=== PATIENT | female | born 1955 | race Caucasian/White ===

== ENCOUNTER 2019-08-08 22:25 | Emergency (ER) | payer SELFPAY ==
[~2019-08-08] VITALS: Ht 152.4 cm; Wt 48.0 kg
[2019-08-08] MEDS ORDERED: DIPH,PERTUSS(ACELL),TET VAC/PF 0.5 ML IM-VACC ONE ×2 (23:30→23:40)
[2019-08-08] MEDS ORDERED: HYDROcodone/APAP 5/325 TABLET PO PRN (23:30)
[2019-08-08] MEDS ORDERED: HYDROcodone/APAP 5/325 TABLET ONE (23:40)
--- NOTE | 2019-08-08 23:46 | NUR ---
MEDS GIVEN, PATIENT TOLERATED WELL. PATIENT TAKEN TO XRAY VIA GURNEY
[2019-08-09 01:28] VITALS: BP 133/59
== END 2019-08-09 01:48 | disposition home or self-care (01) ==
LOC: ED 23:34
DX: S52.572A Other intraarticular fracture of lower end of left radius, initial encounter for closed fracture (principal); R07.81 Pleurodynia; Z87.891 Personal history of nicotine dependence; V27.4XXA Motorcycle driver injured in collision with fixed or stationary object in traffic accident, initial encounter; Y93.89 Activity, other specified; Y92.89 Other specified places as the place of occurrence of the external cause; Y99.8 Other external cause status
CPT/HCPCS: 29125; 71046; 90471; 90715; 99284

== ENCOUNTER 2019-10-07 15:00 | Emergency (ER) | payer SELFPAY ==
[~2019-10-07] VITALS: Ht 152.4 cm; Wt 50.0 kg
--- NOTE | 2019-10-07 15:18 | NUR ---
pt ambulated to room with a steady gait. Changing into hospital gown.
--- NOTE | 2019-10-07 15:24 | NUR ---
pt in with C/O left arm pain that "has gotten progressively worse the last ten days" and "really bad heart burn, bloating and gas"
--- NOTE | 2019-10-07 15:30 | NUR ---
pt states that she was in the ED in 07/2019 and was advised that she broke her wrist. pt verbalized that she was unable to follow up d/t finicial reasons and keep the cast on until 2 weeks ago. pt verbalizes that the pain, numbness, tingling became worse after cast removal. pt verbalized that she has been unable to sleep x7 day as a result of pain.
[2019-10-07] MEDS ORDERED: MAALOX/HYOSCYAMINE/LIDOCAINE 45 ML BTL ONE (15:55)
[2019-10-07] MEDS ORDERED: KETOROLAC 30 MG/1 ML ONE (15:55)
[2019-10-07] MEDS ORDERED: MAALOX/HYOSCYAMINE/LIDOCAINE 45 ML BTL PO ONE (16:00)
[2019-10-07] MEDS ORDERED: KETOROLAC 30 MG/1 ML IM ONE (16:00)
--- NOTE | 2019-10-07 16:08 | NUR ---
xray at bedside.
[2019-10-07 16:20] LABS: ALANINE AMINOTRANSFERASE 23 U/L (12-78); ALBUMIN 3.4 g/dL (3.4-5.0); ANION GAP 5 mmol/L (5-15); CALCIUM 8.8 mg/dL (8.5-10.1); CHLORIDE 112 mmol/L (98-107); CREATININE 0.86 mg/dL (0.55-1.02)
[2019-10-07 16:22] LABS: ALKALINE PHOSPHATASE 110 U/L (45-117); BILIRUBIN,TOTAL 0.4 mg/dL (0.2-1.0); TOTAL PROTEIN 7.4 g/dL (6.4-8.2)
[2019-10-07 16:31] LABS: MEAN CORPUSCULAR HEMOGLOBIN 16.2 pg (27.0-34.8); PLATELET COUNT 340 x10^3/uL (130-400); RED BLOOD COUNT 3.89 x10^6/uL (3.82-5.3); RED CELL DISTRIBUTION WIDTH 21.4 % (9.6-15.2)
[2019-10-07 16:33] LABS: MEAN CORPUSCULAR HGB CONC 28.4 g/dL (32.4-35.8)
[2019-10-07 16:42] LABS: BASOPHILS # (AUTO) 0.05 x10^3/uL (0-0.1); BASOPHILS % (AUTO) 1 % (0-1); EOSINOPHILS # (AUTO) 0.15 x10^3/uL (0-0.4); EOSINOPHILS % (AUTO) 3 % (1-7); LYMPHOCYTES # (AUTO) 1.42 x10^3/uL (1-3.4); LYMPHOCYTES % (AUTO) 24 % (22-44); MD MORPH REVIEW ONLY; MONOCYTES # (AUTO) 0.51 x10^3/uL (0.2-0.8); MONOCYTES % (AUTO) 9 % (2-9); NEUTROPHILS % (AUTO) 64 % (42-75)
[2019-10-07 16:43] LABS: ANISOCYTOSIS 1+; MICROCYTOSIS 2+
[2019-10-07 16:44] LABS: HYPOCHROMIA 2+; OVALOCYTES 1+
[2019-10-07 16:45] LABS: <PLATELET ESTIMATE> ADEQUATE; <PLT MORPHOLOGY> NORMAL PLT MORPH; POLYCHROMASIA 1+
--- NOTE | 2019-10-07 16:56 | NUR ---
MD at bedside to perform rectal exam.
--- NOTE | 2019-10-07 17:00 | NUR ---
pt refusing IV start and blood transfusion. Updated provider regarding pts refusal
[2019-10-07 17:08] VITALS: BP 163/80
--- NOTE | 2019-10-07 17:08 | NUR ---
Dr. Meyers at bedside.
--- NOTE | 2019-10-07 17:38 | NUR ---
Patient given discharge instructions and they have confirmed that they understand the instructions. Patient ambulatory with steady gait.
== END 2019-10-07 18:00 | disposition home or self-care (01) ==
LOC: ED 17:30
DX: G56.02 Carpal tunnel syndrome, left upper limb (principal); M25.532 Pain in left wrist; D50.0 Iron deficiency anemia secondary to blood loss (chronic); R10.84 Generalized abdominal pain
CPT/HCPCS: 29125; 36415; 73110; 80053; 83690; 85025; 93005; 96372; 99285; J1885

== ENCOUNTER 2019-11-28 04:19 | Inpatient (IN) | payer OTHER ==
[2019-11-28] VITALS (10 sets, daily range): BP systolic 131–160; BP diastolic 64–84
[~2019-11-28] VITALS: Ht 154.9 cm; Wt 48.4 kg
--- NOTE | 2019-11-28 04:30 | NUR ---
64 YEAR OLD FEMALE TO ED FOR ABDOMINAL PAIN THAT IS MIDLINE WITH ASSOCIATED NAUSEA AND CHILLS. SHE DENIES FEVER, CONSTIPATION, VOMITING, DIARRHEA.
[2019-11-28] MEDS ORDERED: DICYCLOMINE 10 MG/ML, 2ML IM ONE (05:00)
[2019-11-28] MEDS ORDERED: DICYCLOMINE 10 MG/ML, 2ML ONE (05:08)
[2019-11-28 05:23] LABS: ALANINE AMINOTRANSFERASE 22 U/L (12-78); ANION GAP 5 mmol/L (5-15); CALCIUM 8.9 mg/dL (8.5-10.1); CHLORIDE 108 mmol/L (98-107)
[2019-11-28 05:25] LABS: ALKALINE PHOSPHATASE 123 U/L (45-117); BILIRUBIN,TOTAL 0.3 mg/dL (0.2-1.0); CREATININE 1.18 mg/dL (0.55-1.02)
[2019-11-28 05:36] LABS: BASOPHILS % (AUTO) 1 % (0-1); EOSINOPHILS % (AUTO) 1 % (1-7); LYMPHOCYTES % (AUTO) 19 % (22-44); MEAN CORPUSCULAR HEMOGLOBIN 19.7 pg (27.0-34.8); MEAN CORPUSCULAR HGB CONC 30.3 g/dL (32.4-35.8); MEAN PLATELET VOLUME 8.4 fL (7.4-10.4); MONOCYTES % (AUTO) 8 % (2-9); NEUTROPHILS % (AUTO) 71 % (42-75); PLATELET COUNT 322 x10^3/uL (130-400); RED BLOOD COUNT 3.49 x10^6/uL (3.82-5.3); RED CELL DISTRIBUTION WIDTH 29.1 % (9.6-15.2)
[2019-11-28] MEDS ORDERED: PANTOPRAZOLE 40 MG IV ONE (05:38)
[2019-11-28] MEDS ORDERED: OMNIPAQUE 350 MG/ML, 100ML BOTTLE ONE (05:59)
[2019-11-28] MEDS ORDERED: PANTOPRAZOLE 40 MG IV IV ONE (06:00)
[2019-11-28] MEDS ORDERED: SODIUM CHLORIDE FLUSH 10ML SYR IVF ONE (06:00)
[2019-11-28] MEDS ORDERED: PANTOPRAZOLE 80 MG in SODIUM CHLORIDE 0.9% 100 ML IV SCH ×2 (06:30→08:30)
[2019-11-28 06:37] LABS: % IRON SATURATION 3 % (20-55); ANISOCYTOSIS 2+; BAND#(MANUAL) 0.07 x10^3/uL; BANDS%(MANUAL) 1 % (0-7); BASOS#(MANUAL) 0.07 x10^3/uL (0-0.1); BASOS% (MANUAL) 1 % (0-1); HYPOCHROMIA 2+; IRON LEVEL 11 mcg/dL (50-170); LYMPH#(MANUAL) 0.99 x10^3/uL (1-3.4); LYMPHS% (MANUAL) 15 % (22-44); MICROCYTOSIS 2+; MONOS#(MANUAL) 0.26 x10^3/uL (0.3-2.7); MONOS% (MANUAL) 4 % (2-9); OVALOCYTES 1+; POLYCHROMASIA 1+; SEG#(MANUAL) 5.21 x10^3/uL (1.8-6.8); SEGS% (MANUAL) 79 % (42-75); TOTAL IRON BINDING CAPACITY 409 mcg/dL (250-450)
[2019-11-28 06:38] LABS: <PLATELET ESTIMATE> ADEQUATE; <PLT MORPHOLOGY> NORMAL PLT MORPH
[2019-11-28 06:40] LABS: MD YES
[2019-11-28 06:43] LABS: INTERNATIONAL NORMALIZED RATIO 0.91 (0.93-1.1); PROTHROMBIN TIME 9.4 Seconds (9.6-11.5)
--- NOTE | 2019-11-28 07:05 | NUR ---
REPORT RECEIVED FROM BHAVYA MARADIAGA.
--- NOTE | 2019-11-28 07:13 | NUR ---
PT AMB TO BR WITH STEADY GAIT. URINE CUP GIVEN.
--- NOTE | 2019-11-28 07:21 | NUR ---
PT SIGNED ON CONSENT TO BLOOD TRANSFUSION.
[2019-11-28] MEDS ORDERED: ACETAMINOPHEN 325 MG TABLET PO PRN (07:30)
[2019-11-28] MEDS ORDERED: METOCLOPRAMIDE 5 MG/ML, 2ML IVPush PRN ×2 (07:30→17:00)
[2019-11-28] MEDS ORDERED: ONDANSETRON 2MG/ML, 2ML IVPush PRN (07:30)
[2019-11-28] MEDS ORDERED: TEMAZEPAM 15 MG CAPSULE PO PRN (07:30)
--- NOTE | 2019-11-28 07:31 | NUR ---
URINE COLLECTED AND UA SENT AT THIS TIME.
--- NOTE | 2019-11-28 08:22 | NUR ---
BLOOD TRANSFUSION STARTED AT THIS TIME.
[2019-11-28] MEDS ORDERED: IRON DEXTRAN COMPLEX 25 MG in SODIUM CHLORIDE 0.9% 50 ML IV ONE (08:30)
[2019-11-28 08:52] LABS: MICROSCOPIC AUTO
--- NOTE | 2019-11-28 08:53 | NUR ---
report given to brianda khanna. all questions answered.
[2019-11-28] MEDS ORDERED: IRON DEXTRAN COMPLEX 1,350 MG in SODIUM CHLORIDE 0.9% 250 ML IV ONE (09:30)
[2019-11-28] MEDS ORDERED: EPINEPHRINE 1 MG/ML, 1ML SQ PRN (10:30)
[2019-11-28] MEDS: OMEPRAZOLE 20 MG CAPSULE.DR PO SCH (15:58)
[2019-11-28] MEDS: POTASSIUM CHLORIDE 20 MEQ in LACTATED RINGERS 1,000 ML IV SCH (15:58)
[2019-11-28] MEDS ORDERED: GOLYTELY 4,000ML ORAL.SOL PO ONE ×2 (18:00)
[2019-11-29] MEDS: POTASSIUM CHLORIDE 20 MEQ in LACTATED RINGERS 1,000 ML IV SCH ×3 (02:03→22:35)
[2019-11-29 02:31] VITALS: BP 163/80
[2019-11-29] MEDS: OMEPRAZOLE 20 MG CAPSULE.DR PO SCH ×2 (05:12→15:32)
[2019-11-29 07:42] LABS: ALBUMIN 2.7 g/dL (3.4-5.0); ANION GAP 3 mmol/L (5-15); CALCIUM 9.3 mg/dL (8.5-10.1); CHLORIDE 111 mmol/L (98-107); CREATININE 0.76 mg/dL (0.55-1.02)
[2019-11-29 07:44] LABS: ALKALINE PHOSPHATASE 132 U/L (45-117); BILIRUBIN,TOTAL 0.3 mg/dL (0.2-1.0); TOTAL PROTEIN 6.6 g/dL (6.4-8.2)
[2019-11-29 07:56] VITALS: BP 132/81
[2019-11-29 08:01] LABS: ALANINE AMINOTRANSFERASE < 21 U/L (12-78)
[2019-11-29 10:23] LABS: OCCULT BLOOD POSITIVE (NEGATIVE)
[2019-11-29] MEDS ORDERED: GOLYTELY 4,000ML ORAL.SOL PO ONE (12:00)
[2019-11-29 13:21] VITALS: BP 161/88
[2019-11-29 20:40] VITALS: BP 137/82
[2019-11-30 00:44] VITALS: BP 154/80
[2019-11-30] MEDS: OMEPRAZOLE 20 MG CAPSULE.DR PO SCH ×2 (05:02→16:55)
[2019-11-30 05:43] LABS: ANION GAP 5 mmol/L (5-15); CALCIUM 9.8 mg/dL (8.5-10.1); CHLORIDE 112 mmol/L (98-107)
[2019-11-30 05:46] LABS: ALKALINE PHOSPHATASE 142 U/L (45-117); BILIRUBIN,TOTAL 0.3 mg/dL (0.2-1.0); CREATININE 0.84 mg/dL (0.55-1.02); TOTAL PROTEIN 7.1 g/dL (6.4-8.2)
[2019-11-30 05:52] LABS: BASOPHILS % (AUTO) 4 % (0-1); EOSINOPHILS % (AUTO) 4 % (1-7); LYMPHOCYTES % (AUTO) 28 % (22-44); MEAN CORPUSCULAR HEMOGLOBIN 21.6 pg (27.0-34.8); MEAN CORPUSCULAR HGB CONC 30.7 g/dL (32.4-35.8); MEAN PLATELET VOLUME 8.1 fL (7.4-10.4); MONOCYTES % (AUTO) 10 % (2-9); NEUTROPHILS % (AUTO) 54 % (42-75); PLATELET COUNT 384 x10^3/uL (130-400); RED BLOOD COUNT 4.74 x10^6/uL (3.82-5.3); RED CELL DISTRIBUTION WIDTH 31.6 % (9.6-15.2)
[2019-11-30 05:56] LABS: ALANINE AMINOTRANSFERASE 24 U/L (12-78)
[2019-11-30 06:30] LABS: MD SCAN
[2019-11-30 08:13] VITALS: BP 146/86
[2019-11-30] MEDS ORDERED: FENTANYL PF 100 MCG/2ML ONE (08:56)
[2019-11-30] MEDS ORDERED: MIDAZOLAM 1 MG/ML, 5ML ONE ×2 (08:56)
[2019-11-30] MEDS: POTASSIUM CHLORIDE 20 MEQ in LACTATED RINGERS 1,000 ML IV SCH (09:10)
[2019-11-30 15:41] VITALS: BP 114/80
[2019-11-30] MEDS ORDERED: FERR324T5 PO (17:14)
[2019-11-30] MEDS ORDERED: OMEP-110 PO (17:14)
== END 2019-11-30 19:00 | disposition home or self-care (01) | DRG 378 ==
LOC: SUATTDRO 07:12 → ED 07:23 → EDIP 07:27 → 3N 08:20
PROVIDERS: ADMIT Internal Medicine; ATTEND Internal Medicine
PROC: 30233N1 Transfusion of Nonautologous Red Blood Cells into Peripheral Vein, Percutaneous Approach (ICD-10-PCS; principal; 2019-11-28)
PROC: 0DB68ZX Excision of Stomach, Via Natural or Artificial Opening Endoscopic, Diagnostic (ICD-10-PCS; 2019-11-30)
PROC: 0DBN8ZZ Excision of Sigmoid Colon, Via Natural or Artificial Opening Endoscopic (ICD-10-PCS; 2019-11-30)
PROC: 0DB98ZX Excision of Duodenum, Via Natural or Artificial Opening Endoscopic, Diagnostic (ICD-10-PCS; 2019-11-30 09:00)
DX: K29.01 Acute gastritis with bleeding (principal); D62 Acute posthemorrhagic anemia; D25.9 Leiomyoma of uterus, unspecified; K44.9 Diaphragmatic hernia without obstruction or gangrene; K59.00 Constipation, unspecified; K63.5 Polyp of colon; G56.00 Carpal tunnel syndrome, unspecified upper limb; R10.12 Left upper quadrant pain; N72 Inflammatory disease of cervix uteri; Z66 Do not resuscitate; Z20.828 Contact with and (suspected) exposure to other viral communicable diseases; Z90.721 Acquired absence of ovaries, unilateral; Z79.01 Long term (current) use of anticoagulants; Z79.891 Long term (current) use of opiate analgesic
CPT/HCPCS: 36415; 74177; 80053; 81001; 82272; 83540; 83550; 83690; 83735; 85018; 85025; 85610; 86850; 86900; 86923; 87086; 87635; 88305; 93005; 99152; 99153; G0378; J1750; J2250; J3010; J3480; Q9967; C9113; J0500; J2765; J7050; J7120; P9016

== ENCOUNTER 2020-09-01 07:06 | Emergency (ER) | payer SELFPAY ==
[~2020-09-01] VITALS: Ht 152.4 cm; Wt 44.5 kg
[~2020-09-01 07:06] MED LIST: FERR324T5 PO; OMEP-110 PO
--- NOTE | 2020-09-01 08:04 | NUR ---
PT HAS CO N/V WEAKNESS SINCE THURSDAY, PT STATES SHE THINKS SHE IS ANEMIC. HX OF. PT NOT PALE IN COLOR, AMBULATES WELL. DENIES OTHER HEALTH HISTORY.
[2020-09-01] MEDS ORDERED: ONDANSETRON 2MG/ML, 2ML ONE (08:44)
[2020-09-01] MEDS ORDERED: MORPHINE SULFATE 4 MG/ML, 1ML ONE (08:45)
[2020-09-01] MEDS ORDERED: SODIUM CHLORIDE FLUSH 10ML SYR IVF ONE (09:00)
[2020-09-01] MEDS ORDERED: SODIUM CHLORIDE 0.9% 1,000ML IVBOLUS ONE (09:00)
[2020-09-01] MEDS ORDERED: ONDANSETRON 2MG/ML, 2ML IVPush ONE (09:00)
[2020-09-01] MEDS ORDERED: MORPHINE SULFATE 4 MG/ML, 1ML IVPush PRN (09:00)
--- NOTE | 2020-09-01 09:30 | NUR ---
RECEIVED REPORT FROM ASHWINI CUI. PT RESTING ON ROHANJEANNINE. NADN. POWERS.
[2020-09-01 09:41] LABS: MICROSCOPIC AUTO
[2020-09-01 10:00] LABS: BASOPHILS % (AUTO) 1 % (0-1); EOSINOPHILS % (AUTO) 2 % (1-7); LYMPHOCYTES % (AUTO) 28 % (22-44); MEAN CORPUSCULAR HEMOGLOBIN 28.4 pg (27.0-34.8); MEAN CORPUSCULAR HGB CONC 33.9 g/dL (32.4-35.8); MONOCYTES % (AUTO) 8 % (2-9); NEUTROPHILS % (AUTO) 62 % (42-75); PLATELET COUNT 207 x10^3/uL (130-400); RED BLOOD COUNT 3.66 x10^6/uL (3.82-5.3); RED CELL DISTRIBUTION WIDTH 13.1 % (9.6-15.2)
[2020-09-01 10:12] LABS: ALANINE AMINOTRANSFERASE 23 U/L (12-78); ALBUMIN 2.8 g/dL (3.4-5.0); CALCIUM 8.8 mg/dL (8.5-10.1)
[2020-09-01 10:14] LABS: ALKALINE PHOSPHATASE 95 U/L (45-117); BILIRUBIN,TOTAL 0.2 mg/dL (0.2-1.0); TOTAL PROTEIN 5.9 g/dL (6.4-8.2)
[2020-09-01 10:25] LABS: ANION GAP 5 mmol/L (5-15); CHLORIDE 110 mmol/L (98-107)
--- NOTE | 2020-09-01 11:08 | NUR ---
PER CT UNABLE TO DO CT W/ ABD/PELVIS. DISCUSSED W/ ERP DR. CRUZ. PER ERP NO NEED FOR CT.
[2020-09-01 11:11] VITALS: BP 110/60
[2020-09-01] MEDS ORDERED: CEFDINIR 300 MG CAPSULE ONE (11:12)
[2020-09-01] MEDS ORDERED: CEFDINIR 300 MG CAPSULE PO ONE (11:30)
== END 2020-09-01 11:30 | disposition home or self-care (01) ==
LOC: ED 11:20
DX: N30.00 Acute cystitis without hematuria (principal); R10.33 Periumbilical pain; R11.0 Nausea; R53.83 Other fatigue; F17.210 Nicotine dependence, cigarettes, uncomplicated
CPT/HCPCS: 36415; 80053; 81001; 83605; 85025; 87086; 96361; 96374; 96375; 99284; J2270; J2405; J7030